=== PATIENT | male | born 1980 | race Caucasian/White ===

== ENCOUNTER 2016-12-03 17:32 | Emergency (ER) | payer BC ==
[~2016-12-03] VITALS: Ht 190.5 cm; Wt 106.6 kg
[~2016-12-03 17:32] MED LIST: ALLOPURINOL100 MG PO; AMLODIPINE BESYL5 MG PO; BACTRIM DS 8001 TA1 PO; CIPRO500 MG PO; COZAAR100 MG PO; CYCLOBENZAPRINE10 MG PO; DAYPRO600 M1 PO; FLEXAMIN; HYDROCODONE BIT1 T11 PO; INDOMETHACIN50 MG PO; Motrin,Rufen800 MG PO; NORCO 5-325 TA1 EACH PO; VICO10300 PO; VICODIN 5/500 505 MG PO; VICODIN 500 MG-1 TAB PO
[2016-12-03] MEDS ORDERED: METOPROLOL25 MG PO (17:39)
[2016-12-03] MEDS ORDERED: LIPITOR20 MG PO (17:39)
[2016-12-03] MEDS ORDERED: NAPROSYN500 MG PO (17:48)
[2016-12-03] MEDS ORDERED: KEFLEX500 M1 PO (17:48)
== END 2016-12-04 07:59 | disposition home or self-care (01) ==
LOC: ED 17:32
DX: S51.811A Laceration without foreign body of right forearm, initial encounter (principal); R03.0 Elevated blood-pressure reading, without diagnosis of hypertension; Z79.899 Other long term (current) drug therapy; W45.8XXA Other foreign body or object entering through skin, initial encounter; Y93.89 Activity, other specified; Y92.89 Other specified places as the place of occurrence of the external cause; Y99.8 Other external cause status

== ENCOUNTER 2019-06-23 17:36 | Emergency (ER) | payer OTHER ==
[~2019-06-23] VITALS: Ht 190.5 cm; Wt 117.9 kg
[~2019-06-23 17:36] MED LIST changes: +KEFLEX500 M1 PO; +LIPITOR20 MG PO; +METOPROLOL25 MG PO; +NAPROSYN500 MG PO
[2019-06-23 18:47] LABS: BASO % 0.4 % (0.0-1.0); EOS % 0.1 % (1.0-4.0); HEMATOCRIT 40.9 % (42.0-52.0); HEMOGLOBIN 14.2 g/dl (14.0-18.0); LYMPH # 1.6 10*3/uL (1.3-4.4); LYMPH % 20.8 % (27.0-41.0); MEAN CELL VOLUME 84.5 fl (80.0-94.0); MEAN CORPUSCULAR HGB 29.3 pg (27.0-31.0); MEAN CORPUSCULAR HGB CONC 34.7 g/dl (33.0-37.0); MEAN PLATELET VOLUME 10.6 fl (9.6-12.3); MONO # 0.7 10*3/uL (0.1-1.0); MONO % 9.6 % (3.0-9.0); NEUT # 5.2 10*3/uL (2.3-7.9); NEUT % 68.7 % (47.0-73.0); PLATELET COUNT AUTOMATED 138 10*3/uL (130-400); RED BLOOD COUNT 4.84 10*6/uL (4.50-5.90); WHITE BLOOD COUNT 7.5 10*3/uL (4.8-10.8)
[2019-06-23 19:08] LABS: ALKALINE PHOSPHATASE 71 U/L (45-117); BUN 13 mg/dl (7-24); CHLORIDE 103 mmol/L (98-107); CREATININE 1.12 mg/dL (0.70-1.30); POTASSIUM 4.3 mmol/L (3.5-5.1); SGOT/AST 18 IU/L (3-35); SGPT/ALT 27 U/L (12-78); SODIUM 137 mmol/L (136-145); TOTAL PROTEIN 7.5 gm/dL (6.4-8.2)
[2019-06-23] MEDS ORDERED: TAMIFLU 75MG CA75 MG PO ×2 (19:35→19:43)
== END 2019-06-23 19:45 | disposition home or self-care (01) ==
LOC: ED 17:36
PROVIDERS: Nurse Practitioner Family
DX: J10.1 Influenza due to other identified influenza virus with other respiratory manifestations (principal); R11.2 Nausea with vomiting, unspecified; I10 Essential (primary) hypertension; Z79.2 Long term (current) use of antibiotics; Z79.899 Other long term (current) drug therapy